=== PATIENT | male | born 1995 | race Caucasian/White ===

== ENCOUNTER 2021-08-22 00:19 | Emergency (ER) | payer OTHER ==
[~2021-08-22] VITALS: Ht 170.2 cm; Wt 111.6 kg
[2021-08-22 00:36] VITALS: BP 150/96
--- NOTE | 2021-08-22 00:43 | NUR ---
Dr. Tucker examining patient.
--- NOTE | 2021-08-22 00:47 | NUR ---
pt to lobby
[2021-08-22 01:07] LABS: BASOPHILS % (AUTO) 0.5 % (0.0-2.0); EOSINOPHILS # (AUTO) 0.2 K/uL (0-0.4); EOSINOPHILS % (AUTO) 1.9 % (0.0-4.0); HEMATOCRIT 42.3 % (36-52); HEMOGLOBIN 14.5 g/dL (12.0-18.0); LYMPHOCYTES % (AUTO) 40.7 % (20.5-51.1); MEAN CORPUSCULAR HEMOGLOBIN 31 pg (27-31); MEAN CORPUSCULAR HGB CONC 34 g/dL (33-37); MEAN CORPUSCULAR VOLUME 89.4 fL (80-94); MONOCYTES # (AUTO) 0.6 K/uL (0.8-1.0); MONOCYTES % (AUTO) 5.7 % (1.7-9.3); NEUTROPHILS # (AUTO) 5.1 K/uL (1.8-7.7); NEUTROPHILS % (AUTO) 51.2 % (42.2-75.2); PLATELET COUNT (AUTO) 306 K/uL (140-450); RED BLOOD CELL COUNT(AUTO) 4.73 MIL/uL (4.20-6.10); RED CELL DISTRIBUTION WIDTH 14.8 % (11.6-13.7); WHITE BLOOD COUNT (AUTO) 9.9 K/uL (4.8-10.8)
--- NOTE | 2021-08-22 01:20 | NUR ---
Clyde finch in [facility] - 08/22/21 at 0120 by CHRISTIAN PT RETURN FROM CT
--- NOTE | 2021-08-22 01:20 | NUR ---
PT RETURN FROM XRAY
--- NOTE | 2021-08-22 01:40 | NUR ---
PT TAKEN TO BED 4
--- NOTE | 2021-08-22 01:41 | NUR ---
Patient BIB by family from home. C/O atypical chest pain x today. Patient reported, was drinking energy drink 2 cans today, had left chest pain, palitation ~ 2200 PM , No history of heart problems. A/O,X4, left chest pain, pressure, radiate to left upper arm, pain rate 6/10.
[2021-08-22 01:43] LABS: ALBUMIN 3.8 g/dL (3.4-5.0); ANION GAP 9.5 (8-16); CARBON DIOXIDE 28.8 mmol/L (21-32); CREATININE 0.8 mg/dL (0.6-1.3); POTASSIUM 3.3 mmol/L (3.5-5.1); TOTAL BILIRUBIN 0.3 mg/dL (0.0-1.0)
[2021-08-22 01:44] LABS: BARBITURATE, URINE NEGATIVE ng/ml (NEG <=200); BENZODIAZEPINE, URINE NEGATIVE ng/mL (NEG <=200); CANNABINOID, URINE NEGATIVE ng/mL (NEG <=50); COCAINE, URINE POSITIVE ng/mL (NEG <=300); OPIATE, URINE NEGATIVE ng/mL (NEG <=2000); PHENCYCLIDINE SCREEN,URINE NEGATIVE ng/mL (NEG <=25)
[2021-08-22 03:11] VITALS: BP 148/98
--- NOTE | 2021-08-22 03:11 | NUR ---
Patient discharged with v/s stable. Written and verbal after care instructions given and explained by Dr. Tucker. Patient verbalized understanding. Ambulatory with steady gait. All questions addressed prior to discharge. Advised to follow up with PMD.
== END 2021-08-22 03:11 | disposition home or self-care (01) ==
LOC: MED 00:19
DX: R07.89 Other chest pain (principal); F14.129 Cocaine abuse with intoxication, unspecified
CPT/HCPCS: 36415; 71045; 80053; 80305; 83880; 84484; 85025; 85379; 93005; 99285